=== PATIENT | female | born 1980 | race Caucasian/White ===

== ENCOUNTER 2017-10-17 15:59 | Inpatient (IN) | payer OTHER ==
[~2017-10-17] VITALS: Ht 157.5 cm; Wt 74.3 kg
[~2017-10-17 15:59] MED LIST: ADDERALL10 MG PO; ALPRAZOLAM ER1 MG PO; ALPRAZOLAM1 MG PO; BUPRENORPHINE HC2 MG SL; Buspar PO; DAILY VALUE1 EACH PO; DILAUDID4 MG PO; INDERAL10 MG PO; KLONOPIN0.5 M1 PO; MOTRIN IB200 MG PO; Motrin PO; PROZAC40 MG PO; SUBUTEX8 MG SL; TOPAMAX100 MG PO; TRAZODONE HCL50 MG PO; WELLBUTRIN SR150 MG PO; XANAX0.5 MG PO
[2017-10-17 17:19] LABS: HEMATOCRIT 43.3 % (36.0-46.0); HEMOGLOBIN 14.8 G/DL (11.9-15.5); MCH 29.7 PG (29.0-34.0); MCHC 34.2 G/DL (30.0-36.0); MCV 86.8 FL (83-99); RBC DIS.WIDTH-CV 12.5 % (11.8-14.6); RBC DIS.WIDTH-SD 39.3 % (39-53); RED BLOOD COUNT 4.99 M/uL (3.80-5.20); WHITE BLOOD COUNT 21.7 K/uL (4.1-10.2)
[2017-10-17 17:29] LABS: APPEARANCE SL.HAZY ((CLEAR)); BILIRUBIN NEGATIVE; BLOOD NEGATIVE; COLOR YELLOW ((YELLOW)); GLUCOSE (STRIP) NEGATIVE; KETONES 5; LEUKOCYTES NEGATIVE; NITRITE NEGATIVE; PROTEIN (STRIP) NEGATIVE; SPECIFIC GRAVITY 1.012 (1.000-1.030); UROBILINOGEN 0.2 MG/DL (0.2-1.0)
[2017-10-17 17:33] LABS: ALBUMIN 4.2 g/dL (3.2-4.8)
[2017-10-17 17:34] LABS: CHLORIDE 106 mEq/L (99-109); POTASSIUM 3.6 mEq/L (3.7-5.4); SODIUM 136 mEq/L (136-147)
[2017-10-17 17:36] LABS: GLUCOSE 185 mg/dL (70-99)
[2017-10-17 17:38] LABS: TOTAL BILIRUBIN 0.4 mg/dL (0.0-1.0)
[2017-10-17 17:38] LABS: BACTERIA RARE /HPF; EPITHELIAL CELLS 3+ /HPF; HYALINE CASTS 0-5 /LPF; MUCUS TRACE /LPF; RED BLOOD CELLS 0-5 /HPF (0-5); UCUL ADDED? NO; WHITE BLOOD CELLS 0-5 /HPF (0-5)
[2017-10-17 17:39] LABS: ALKALINE PHOSPHATASE 92 IU/L (3-129)
[2017-10-17 17:40] LABS: CREATININE 0.7 mg/dL (0.6-1.3); GFR ESTIMATE (CALCULATED) > 59 mL/min/
[2017-10-17 17:41] LABS: AST (GOT) 29 IU/L (2-34); UREA NITROGEN (BUN) 10 mg/dL (9-23)
[2017-10-17 17:43] LABS: ALT (GPT) 28 IU/L (3-49)
[2017-10-17 17:48] LABS: QUANTITATIVE HCG < 4.0 MIU/ML
[2017-10-17 17:50] LABS: PLATELET COUNT 106 K/uL (156-360)
[2017-10-17 19:12] LABS: LIPASE > 1055 U/L (1.0-51.0)
[2017-10-17 19:29] LABS: SERUM ETHYL ALCOHOL < 10 mg/dL
[2017-10-17 21:02] LABS: AMPHETAMINE PRESUMPTIVE POSITIVE (500 ng/mL); BARBITURATES NEGATIVE (200 ng/mL); BENZODIAZEPINES PRESUMPTIVE POSITIVE (150 ng/mL); BUPRENORPHINE PRESUMPTIVE POSITIVE (10 ng/mL); COCAINE NEGATIVE (150 ng/mL); METHADONE NEGATIVE (200 ng/mL); METHAMPHETAMINE NEGATIVE (500 ng/mL); OPIATES (MORPHINE) NEGATIVE (100 ng/mL); OXYCODONE NEGATIVE (100 ng/mL); PHENCYCLIDINE NEGATIVE (25 ng/mL); PROPOXYPHENE NEGATIVE (300 ng/mL); THC CANNABINOIDS NEGATIVE (50 ng/mL); TRICYCLIC ANTIDEPRESSANTS NEGATIVE (300 ng/mL)
[2017-10-17] MEDS ORDERED: VYVANSE30 MG PO (21:17)
[2017-10-17] MEDS ORDERED: AMLODIPINE BESY10 MG PO (21:17)
[2017-10-17] MEDS ORDERED: ALPRAZOLAM0.5 MG PO (21:17)
[2017-10-17] MEDS ORDERED: FLUOXETINE HCL20 MG PO (21:18)
[2017-10-17] MEDS ORDERED: TOPIRAMATE50 MG PO (21:18)
[2017-10-17] MEDS ORDERED: BUPRENORPHINE HC8 MG SL (21:19)
[2017-10-17] MEDS ORDERED: RANITIDINE HCL150 MG PO (21:20)
[2017-10-17] MEDS ORDERED: CHANTIX1 MG PO (21:21)
[2017-10-17 21:37] LABS: BENZODIAZEPINES, URINE SCREEN POSITIVE (200 ng/mL)
[2017-10-17 23:40] VITALS: BP 153/76
[2017-10-18 06:21] LABS: BASOPHIL (%) 0.1 % (0-1); EOSINOPHIL (%) 0 % (0-5); HEMATOCRIT 40.9 % (36.0-46.0); HEMOGLOBIN 14.1 G/DL (11.9-15.5); IMMATURE GRANULOCYTE (%) 0.6 % (0.0-0.7); LYMPHOCYTE (%) 3.4 % (15-42); LYMPHOCYTE COUNT 0.7 K/uL (1.0-2.8); MCH 29.5 PG (29.0-34.0); MCHC 34.5 G/DL (30.0-36.0); MCV 85.6 FL (83-99); MONOCYTE (%) 3.8 % (3-12); MONOCYTE COUNT 0.8 K/uL (0-0.8); NEUTROPHIL (%) 92.1 % (45-76); NEUTROPHIL COUNT 19.8 K/uL (1.8-6.4); RBC DIS.WIDTH-CV 12.5 % (11.8-14.6); RBC DIS.WIDTH-SD 38.8 % (39-53); RED BLOOD COUNT 4.78 M/uL (3.80-5.20); WHITE BLOOD COUNT 21.5 K/uL (4.1-10.2)
[2017-10-18 06:22] LABS: PLATELET COUNT 182 K/uL (156-360)
[2017-10-18 06:56] LABS: ALBUMIN 3.9 G/DL (3.2-4.8); ALKALINE PHOSPHATASE 75 IU/L (3-129); ALT (GPT) 17 IU/L (3-49); AST (GOT) 20 IU/L (2-34); CHLORIDE 107 MEQ/L (99-109); CREATININE 0.5 MG/DL (0.6-1.3); GFR ESTIMATE (CALCULATED) > 59 mL/min/; GLUCOSE 146 mg/dL (70-99); LIPASE 1887 U/L (1.0-51.0); POTASSIUM 3.4 MEQ/L (3.7-5.4); SODIUM 135 MEQ/L (136-147); TOTAL BILIRUBIN 0.4 MG/DL (0.0-1.0); TOTAL PROTEIN 6.9 G/DL (6.4-8.3); UREA NITROGEN (BUN) 8 mg/dL (9-23)
[2017-10-18 07:16] VITALS: BP 147/77
[2017-10-18 15:04] VITALS: BP 156/98
[2017-10-19] VITALS: BP 155/88
[2017-10-19 06:59] VITALS: BP 144/73
[2017-10-19 08:54] LABS: HEMATOCRIT 37.5 % (36.0-46.0); MCH 29.5 PG (29.0-34.0); MCHC 34.7 G/DL (30.0-36.0); PLATELET COUNT 152 K/uL (156-360); RBC DIS.WIDTH-CV 12.9 % (11.8-14.6); RBC DIS.WIDTH-SD 39.5 % (39-53); RED BLOOD COUNT 4.41 M/uL (3.80-5.20); WHITE BLOOD COUNT 22.1 K/uL (4.1-10.2)
[2017-10-19 09:30] LABS: CHLORIDE 104 MEQ/L (99-109); CREATININE 0.4 MG/DL (0.6-1.3); GFR ESTIMATE (CALCULATED) > 59 mL/min/; GLUCOSE 121 mg/dL (70-99); LIPASE 812 U/L (1.0-51.0); MAGNESIUM 1.9 mg/dl (1.3-2.7); PHOSPHORUS 1.2 mg/dL (2.5-4.9); POTASSIUM 3.3 MEQ/L (3.7-5.4); SODIUM 130 MEQ/L (136-147); UREA NITROGEN (BUN) 6 mg/dL (9-23)
[2017-10-19 15:10] VITALS: BP 169/89
[2017-10-20 00:28] VITALS: BP 149/85
[2017-10-20 06:42] LABS: BASOPHIL (%) 0.2 % (0-1); EOSINOPHIL (%) 0.1 % (0-5); HEMATOCRIT 38.4 % (36.0-46.0); HEMOGLOBIN 13.4 G/DL (11.9-15.5); IMMATURE GRANULOCYTE (%) 1.3 % (0.0-0.7); LYMPHOCYTE (%) 4.6 % (15-42); LYMPHOCYTE COUNT 1.1 K/uL (1.0-2.8); MCHC 34.9 G/DL (30.0-36.0); MCV 85.9 FL (83-99); MONOCYTE COUNT 1.4 K/uL (0-0.8); NEUTROPHIL (%) 87.8 % (45-76); NEUTROPHIL COUNT 20.1 K/uL (1.8-6.4); RBC DIS.WIDTH-CV 12.8 % (11.8-14.6); RBC DIS.WIDTH-SD 39.9 % (39-53); RED BLOOD COUNT 4.47 M/uL (3.80-5.20); WHITE BLOOD COUNT 22.9 K/uL (4.1-10.2)
[2017-10-20 07:06] VITALS: BP 157/81
[2017-10-20 07:13] LABS: ALBUMIN 3.4 G/DL (3.2-4.8); ALKALINE PHOSPHATASE 65 IU/L (3-129); ALT (GPT) 10 IU/L (3-49); AST (GOT) 17 IU/L (2-34); CHLORIDE 104 MEQ/L (99-109); CREATININE 0.5 MG/DL (0.6-1.3); DIRECT BILIRUBIN 0.2 mg/dL (0.0-0.3); GFR ESTIMATE (CALCULATED) > 59 mL/min/; GLUCOSE 104 mg/dL (70-99); MAGNESIUM 1.9 mg/dl (1.3-2.7); PHOSPHORUS 1.3 mg/dL (2.5-4.9); POTASSIUM 3.4 MEQ/L (3.7-5.4); PREALBUMIN 11.6 mg/dL (10-40); SODIUM 135 MEQ/L (136-147); TOTAL PROTEIN 6.6 G/DL (6.4-8.3); TRIGLYCERIDES 104 MG/DL (Normal: <150); UREA NITROGEN (BUN) 6 mg/dL (9-23)
[2017-10-20 07:14] LABS: PLAT.SUFFICIENCY ADEQUATE; PLATELET CLUMPS PRESENT - PLATELET COUNT APPEARS ADQ.; PLATELET COUNT UNABLE TO REPORT K/uL (156-360)
[2017-10-20 07:15] LABS: TOTAL BILIRUBIN 0.7 MG/DL (0.0-1.0)
[2017-10-20 15:18] VITALS: BP 170/106
[2017-10-20 23:21] VITALS: BP 148/86
[2017-10-21 07:17] VITALS: BP 153/96
[2017-10-21 07:34] LABS: HEMATOCRIT 37.1 % (36.0-46.0); HEMOGLOBIN 12.8 G/DL (11.9-15.5); MCH 29.1 PG (29.0-34.0); MCHC 34.5 G/DL (30.0-36.0); MCV 84.3 FL (83-99); RBC DIS.WIDTH-CV 12.6 % (11.8-14.6); RBC DIS.WIDTH-SD 38.5 % (39-53); WHITE BLOOD COUNT 17.1 K/uL (4.1-10.2)
[2017-10-21 07:50] LABS: PLATELET COUNT 154 K/uL (156-360)
[2017-10-21 09:25] LABS: ALBUMIN 3.5 G/DL (3.2-4.8); ALKALINE PHOSPHATASE 68 IU/L (3-129); ALT (GPT) 9 IU/L (3-49); AST (GOT) 15 IU/L (2-34); CHLORIDE 106 MEQ/L (99-109); CREATININE 0.4 MG/DL (0.6-1.3); GFR ESTIMATE (CALCULATED) > 59 mL/min/; MAGNESIUM 1.9 mg/dl (1.3-2.7); POTASSIUM 3.7 MEQ/L (3.7-5.4); SODIUM 136 MEQ/L (136-147); TOTAL BILIRUBIN 0.6 MG/DL (0.0-1.0); TOTAL PROTEIN 6.5 G/DL (6.4-8.3); UREA NITROGEN (BUN) 6 mg/dL (9-23)
[2017-10-21 09:26] LABS: GLUCOSE 162 mg/dL (70-99); PHOSPHORUS 2.3 mg/dL (2.5-4.9)
[2017-10-21 16:42] VITALS: BP 176/118
[2017-10-21 17:50] VITALS: BP 140/84
[2017-10-21 23:56] VITALS: BP 155/81
[2017-10-22 07:43] LABS: HEMATOCRIT 33.9 % (36.0-46.0); HEMOGLOBIN 11.4 G/DL (11.9-15.5); MCH 29.2 PG (29.0-34.0); MCHC 33.6 G/DL (30.0-36.0); MCV 86.7 FL (83-99); PLATELET COUNT 200 K/uL (156-360); RBC DIS.WIDTH-CV 12.8 % (11.8-14.6); RBC DIS.WIDTH-SD 40.4 % (39-53); RED BLOOD COUNT 3.91 M/uL (3.80-5.20); WHITE BLOOD COUNT 15.5 K/uL (4.1-10.2)
[2017-10-22 08:00] VITALS: BP 162/104
[2017-10-22 08:06] LABS: ALBUMIN 3.4 G/DL (3.2-4.8); ALKALINE PHOSPHATASE 71 IU/L (3-129); ALT (GPT) 10 IU/L (3-49); AST (GOT) 17 IU/L (2-34); CHLORIDE 106 MEQ/L (99-109); CREATININE 0.4 MG/DL (0.6-1.3); GFR ESTIMATE (CALCULATED) > 59 mL/min/; GLUCOSE 133 mg/dL (70-99); POTASSIUM 3.6 MEQ/L (3.7-5.4); SODIUM 137 MEQ/L (136-147); TOTAL BILIRUBIN 0.5 MG/DL (0.0-1.0); TOTAL PROTEIN 6.5 G/DL (6.4-8.3); UREA NITROGEN (BUN) 8 mg/dL (9-23)
[2017-10-22 08:07] LABS: CHLORIDE 105 MEQ/L (99-109); CREATININE 0.4 MG/DL (0.6-1.3); GFR ESTIMATE (CALCULATED) > 59 mL/min/; GLUCOSE 134 mg/dL (70-99); MAGNESIUM 1.9 mg/dl (1.3-2.7); PHOSPHORUS 3.7 mg/dL (2.5-4.9); POTASSIUM 3.7 MEQ/L (3.7-5.4); SODIUM 136 MEQ/L (136-147); UREA NITROGEN (BUN) 8 mg/dL (9-23)
[2017-10-22 16:00] VITALS: BP 172/104
[2017-10-22 18:20] VITALS: BP 168/88
[2017-10-22 23:41] VITALS: BP 186/100
[2017-10-23 01:00] VITALS: BP 161/94
[2017-10-23 05:18] LABS: HEMATOCRIT 33.3 % (36.0-46.0); HEMOGLOBIN 11.2 G/DL (11.9-15.5); MCH 29.3 PG (29.0-34.0); MCHC 33.6 G/DL (30.0-36.0); MCV 87.2 FL (83-99); PLATELET COUNT 187 K/uL (156-360); RBC DIS.WIDTH-CV 12.7 % (11.8-14.6); RBC DIS.WIDTH-SD 40.3 % (39-53); RED BLOOD COUNT 3.82 M/uL (3.80-5.20); WHITE BLOOD COUNT 15.5 K/uL (4.1-10.2)
[2017-10-23 05:39] LABS: ALBUMIN 3.3 G/DL (3.2-4.8); ALKALINE PHOSPHATASE 72 IU/L (3-129); ALT (GPT) 16 IU/L (3-49); AST (GOT) 23 IU/L (2-34); CHLORIDE 104 MEQ/L (99-109); CREATININE 0.4 MG/DL (0.6-1.3); GFR ESTIMATE (CALCULATED) > 59 mL/min/; GLUCOSE 142 mg/dL (70-99); MAGNESIUM 1.9 mg/dl (1.3-2.7); PHOSPHORUS 3.3 mg/dL (2.5-4.9); POTASSIUM 4.2 MEQ/L (3.7-5.4); SODIUM 135 MEQ/L (136-147); TOTAL BILIRUBIN 0.5 MG/DL (0.0-1.0); TOTAL PROTEIN 6.6 G/DL (6.4-8.3); UREA NITROGEN (BUN) 7 mg/dL (9-23)
[2017-10-23 08:00] VITALS: BP 171/114
[2017-10-23 11:34] LABS: LIPASE 191 U/L (1.0-51.0)
[2017-10-23 16:00] VITALS: BP 166/93
[2017-10-24 00:04] VITALS: BP 145/82
[2017-10-24 06:42] LABS: CHLORIDE 105 MEQ/L (99-109); CREATININE 0.4 MG/DL (0.6-1.3); GFR ESTIMATE (CALCULATED) > 59 mL/min/; GLUCOSE 140 mg/dL (70-99); POTASSIUM 4.5 MEQ/L (3.7-5.4); SODIUM 136 MEQ/L (136-147); UREA NITROGEN (BUN) 8 mg/dL (9-23)
[2017-10-24 06:48] LABS: PHOSPHORUS 4.7 mg/dL (2.5-4.9)
[2017-10-24 07:09] VITALS: BP 118/63
[2017-10-24 14:57] VITALS: BP 122/75
[2017-10-25 00:01] VITALS: BP 127/77
[2017-10-25 07:00] LABS: CHLORIDE 100 MEQ/L (99-109); CREATININE 0.6 MG/DL (0.6-1.3); GFR ESTIMATE (CALCULATED) > 59 mL/min/; GLUCOSE 155 mg/dL (70-99); MAGNESIUM 1.9 mg/dl (1.3-2.7); PHOSPHORUS 4.7 mg/dL (2.5-4.9); POTASSIUM 4.3 MEQ/L (3.7-5.4); SODIUM 133 MEQ/L (136-147); UREA NITROGEN (BUN) 9 mg/dL (9-23)
[2017-10-25 07:04] VITALS: BP 127/62
[2017-10-25] MEDS ORDERED: OXYCODONE-APAP1 EACH PO (10:44)
[2017-10-25] MEDS ORDERED: ZOFRAN4 MG PO (11:56)
== END 2017-10-25 13:14 | disposition home or self-care (01) | DRG 439 ==
LOC: EME 15:59 → 5SOUTH 21:17 → EDOF 21:17 → ENRESERV 21:18 → 5SOUTH 22:49
PROVIDERS: Hospitalist; Internal Medicine; Internal Medicine Gastroenterology; Physician Assistant; Physician Assistant Medical
PROC: 3E0436Z Introduction of Nutritional Substance into Central Vein, Percutaneous Approach (ICD-10-PCS; principal; 2017-10-20)
DX: K85.20 Alcohol induced acute pancreatitis without necrosis or infection (principal); R18.8 Other ascites; D73.5 Infarction of spleen; J98.11 Atelectasis; E87.2 Acidosis; F10.20 Alcohol dependence, uncomplicated; F32.9 Major depressive disorder, single episode, unspecified; K86.1 Other chronic pancreatitis; I10 Essential (primary) hypertension; F41.9 Anxiety disorder, unspecified; F90.9 Attention-deficit hyperactivity disorder, unspecified type; F17.210 Nicotine dependence, cigarettes, uncomplicated; F19.11 Other psychoactive substance abuse, in remission; K59.00 Constipation, unspecified; Z68.31 Body mass index [BMI] 31.0-31.9, adult; Z86.73 Personal history of transient ischemic attack (TIA), and cerebral infarction without residual deficits; Z80.8 Family history of malignant neoplasm of other organs or systems
CPT/HCPCS: 71020; 74177; 76937; 80048; 80053; 81003; 82248; 82948; 83605; 83690; 83735; 84100; 84134; 84478; 84630 90; 84702; 84999; 85025; 85027; 87040; 90686; 99281; 99285; C9113; G0480; J0696; J1170; J1650; J1815; J2270; J2405; J2550; J2765; J3010; J3480; J7030; J7040; J7050; J7120; S0030